=== PATIENT | male | born 1955 | race Caucasian/White ===

== ENCOUNTER 2020-05-14 09:38 | Outpatient (CLI) | payer OTHER, SELFPAY ==
--- NOTE | ~2020-05-14 | MR_ITS ---
EXAMINATION: MR lower leg LT wo con DATE: 05/14/2020 10:53 INDICATION: Left calf pain post injury with audible pop occurring 2-3 weeks prior. TECHNIQUE: Magnetic resonance imaging (MRI) of the left lower leg was performed without intravenous c ontrast. Sequences included axial, sagittal and coronal T1-weighted FSE and fluid sensitive FSE STIR . COMPARISON: None. FINDINGS: There is an oblique tear extending along approximately 8 cm length of the lateral side of the myotend inous junction of the medial head of the gastrocnemius muscle. The tear involves approximately 25% of the cross-sectional length of the medial head myotendinous junction. There is a 6 x 2.1 x 1.6 cm hem atoma extending along the tear defect. The tear centered approximately 11 cm distal to the left knee joint line. There is also some epimysial edema along the peripheral margin of the proximal aspect of the medial head of the gastrocnemius muscle. The more distal Achilles tendon is normal. Remaining mus culature of the left calf is normal. Normal bone marrow signal throughout with no reactive edema, fra cture or pathologic marrow replacing process. Physiologic amount of fluid in the left knee and ankle joints. IMPRESSION: 1. Moderate grade strain/partial tear at the myotendinous junction of the medial head of the gastrocn emius muscle. Reviewed, dictated and finalized at location A. CAPTAIN IMPRESSION: 1. Moderate grade strain/partial tear at the myotendinous junction of the media l head of the gastrocnemius muscle.
== END 2020-05-14 09:39 | disposition home or self-care (01) ==
PROVIDERS: PCP Family Medicine; Visit Provider Orthopaedic Surgery
DX: M79.662 Pain in left lower leg (principal); M79.89 Other specified soft tissue disorders
CPT/HCPCS: 73718

== ENCOUNTER 2021-02-15 09:35 | Outpatient (CLI) | payer OTHER, SELFPAY ==
--- NOTE | 2021-02-15 11:00 | NEURO_ITS ---
Impression: # Complains of left 4th finger numbness and numbness of feet. Insulin dependent diabetic. # Left ulnar neuropathy across the elbow. # Normal nerve conduction study of lower extremities. # Normal needle/EMG exam. Nerve Conduction Studies Anti Sensory Summary Table Stim Site NR Peak (ms) P-T Amp (?V) Site1 Site2 Delta-P (ms) Dist (cm) Alejandro (m/s) Left Median Anti Sensory (2-3nd Digit) Wrist 2.8 79.6 Wrist 2-3nd Digit 2.8 14.0 50 Wrist 2.7 73.4 Wrist 2-3nd Digit 2.8 14.0 50 Left Radial Anti Sensory (Base 1st Digit) Wrist 2.1 9.3 Wrist Base 1st Digit 2.1 0.0 Left Sup Fibular Anti Sensory (Ant Lat Mall) 14 cm 3.6 10.5 14 cm Ant Lat Mall 3.6 16.0 44 Right Sup Fibular Anti Sensory (Ant Lat Mall) 14 cm 4.1 4.5 14 cm Ant Lat Mall 4.1 16.0 39 Left Sural Anti Sensory (Lat Mall) Calf 4.2 7.3 Calf Lat Mall 4.2 16.0 38 Right Sural Anti Sensory (Lat Mall) Calf 4.3 5.5 Calf Lat Mall 4.3 16.0 37 Left Ulnar Anti Sensory (5th Digit) Wrist 2.6 22.7 Wrist 5th Digit 2.6 14.0 54 Motor Summary Table Stim Site NR Onset (ms) O-P Amp (mV) Site1 Site2 Delta-0 (ms) Dist (cm) Alejandro (m/s) Left Median Motor (Abd Poll Brev) Wrist 3.1 3.0 Elbow Wrist 4.6 28.0 61 Elbow 7.7 2.2 Left Peroneal Motor (Vastus Med) Ankle 5.4 2.3 Popit Ankle 9.5 38.0 40 Popit 14.9 2.6 Right Peroneal Motor (Vastus Med) Ankle 5.9 0.8 Popit Ankle 7.8 37.0 47 Popit 13.7 1.0 Left Tibial Motor (Abd Escobar Brev) Ankle 5.7 1.4 Knee Ankle 9.5 40.0 42 Knee 15.2 0.7 Right Tibial Motor (Abd Escobar Brev) Ankle 5.7 1.9 Knee Ankle 9.5 38.0 40 Knee 15.2 2.1 Left Ulnar Motor (Abd Dig Minimi) Wrist 2.3 8.4 A Elbow Wrist 5.2 27.0 52 A Elbow 7.5 6.2 B Elbow Wrist 4.0 24.0 60 B Elbow 6.3 6.3 F Wave Studies NR F-Lat (ms) L-R F-Lat (ms) Left Median (Mrkrs) (Abd Poll Brev) 25.58 Left Peroneal (Mrkrs) (EDB) 48.77 0.00 Right Peroneal (Mrkrs) (EDB) 48.77 0.00 Left Tibial (Mrkrs) (Abd Hallucis) 50.53 2.25 Right Tibial (Mrkrs) (Abd Hallucis) 48.28 2.25 Left Ulnar (Mrkrs) (Abd Dig Min) 25.40 EMG Side Muscle Nerve Root Ins Act Fibs Amp Dur Recrt Comment Right AntTibialis Dp Br Fibular L4-5 Nml Nml Nml Nml Nml Right Gastroc Tibial S1-2 Nml Nml Nml Nml Nml Right Fibularis Long Sup Br Fibular L5-S1 Nml Nml Nml Nml Nml Right Flex Dig Long Tibial L5-S2 Nml Nml Nml Nml Nml Right Ext Dig Brev Dp Br Fibular L5, S1 Nml Nml Nml Nml Nml Left AntTibialis Dp Br Fibular L4-5 Nml Nml Nml Nml Nml Left Gastroc Tibial S1-2 Nml Nml Nml Nml Nml Left Fibularis Long Sup Br Fibular L5-S1 Nml Nml Nml Nml Nml Left Flex Dig Long Tibial L5-S2 Nml Nml Nml Nml Nml Left Ext Dig Brev Dp Br Fibular L5, S1 Nml Nml Nml Nml Nml Left 1stDorInt Ulnar C8-T1 Nml Nml Nml Nml Nml Left Ext Indicis Radial (Post Int) C7-8 Nml Nml Nml Nml Nml Left Ext Digitorum Radial (Post Int) C7-8 Nml Nml Nml Nml Nml Left BrachioRad Radial C5-6 Nml Nml Nml Nml Nml Left PronatorTeres Median C6-7 Nml Nml Nml Nml Nml Left Abd Poll Brev Median C8-T1 Nml Nml Nml Nml Nml MTDD
== END 2021-02-15 09:36 | disposition home or self-care (01) ==
PROVIDERS: PCP Family Medicine; Visit Provider Emergency Medicine
DX: G56.22 Lesion of ulnar nerve, left upper limb (principal)
CPT/HCPCS: 95886; 95913

== ENCOUNTER 2023-02-21 08:08 | Outpatient (CLI) | payer OTHER, SELFPAY ==
--- NOTE | ~2023-02-21 | US_ITS ---
Limited Abdominal Sonogram: Real-time sonographic imaging of the right upper quadrant was performed. Clinical History: Abnormal liver enzymes Findings: The liver appears echogenic, with no evidence of mass lesion or bile duct dilatation. Main portal vein demonstrates normal direction of flow. The gallbladder is absent, compatible prior harlan cystectomy. The common bile duct measures 4 mm. The visualized pancreas, aorta, and IVC are unremark able. Impression: Diffuse fatty infiltration of liver. Reviewed, dictated and finalized at location M. Impression: Diffuse fatty infiltration of liver.
[2023-02-21 11:10] LABS: Appearance Urine Clear (Clear); Bilirubin Urine Negative (Negative); Blood Urine Negative (Negative); Color Urine Yellow (Yellow); Glucose Urine UA 3+ mg/dL (Negative); Ketones Urine Negative (Negative); Leukocyte Esterase Ur Negative LEU/UL (NEGATIVE); Nitrate Urine Negative (Negative); Protein Urine Negative (Negative); Urobilinogen Urine 0.2 mg/dL (<2.0)
[2023-02-21 11:30] LABS: Add Urine Microscopic? NO
[2023-02-21 11:34] LABS: Hemoglobin A1C 7.2 % (<5.7)
[2023-02-21 11:43] LABS: Hepatitis B Surface Antigen Negative (Negative)
[2023-02-21 11:49] LABS: HAV RESULT Negative (Negative); Hepatitis B Core IgM Result Negative (Negative)
[2023-02-21 12:01] LABS: Hepatitis C Virus Antibody Negative (Negative)
== END 2023-02-21 08:09 | disposition home or self-care (01) ==
PROVIDERS: PCP Emergency Medicine; Visit Provider Emergency Medicine
DX: E11.9 Type 2 diabetes mellitus without complications (principal); R74.01 Elevation of levels of liver transaminase levels; K76.0 Fatty (change of) liver, not elsewhere classified
CPT/HCPCS: 36415; 76705; 80074; 81001; 81003; 83036

== ENCOUNTER 2023-03-21 05:18 | Day surgery (SDC) | payer OTHER, SELFPAY ==
[2023-03-11 08:21] VITALS: BMI 31.4
--- NOTE | 2023-03-20 13:37 | WPDANESEPPF ---
Anes - Initial Pre Proc Eval Procedure: Operation Date: 03/21/23 09:30 Proposed Procedures p Colonoscopy - Julian Aparicio MD Date/Time: 03/20/23 13:37 Surgeon: Julian Aparicio MD Pre Op Diagnosis: personal hx colon polyps Patient Data Age: 67 Gender: M Height: 1.7 m Weight: 91 kg Allergies Allergy/AdvReac Type Severity Reaction Status Date / Time onion Allergy Severe Anaphylaxis Verified 03/21/23 08:15 Home Medications Medication Instructions Recorded Confirmed Type Glucosamine Chondroitin 1 tab-cap PO DAILY 03/11/23 03/11/23 History Vitamin D3 1 cap PO DAILY 03/11/23 03/11/23 History allopurinol 300 mg tablet 30 mg PO EVERY OTHER DAY 03/11/23 03/11/23 History atorvastatin 20 mg tablet 20 mg PO HS 03/11/23 03/11/23 History empagliflozin 25 mg tablet 25 mg PO DAILY 03/11/23 03/11/23 History (Jardiance) glimepiride 4 mg tablet 4 mg PO BID 03/11/23 03/11/23 History insulin degludec 100 unit/mL (3 30 unit subcut DAILY 03/11/23 03/11/23 History mL) subcutaneous pen (Tresiba FlexTouch U-100 insulin) krill oil 1 cap PO DAILY 03/11/23 03/11/23 History losartan 100 mg tablet 100 mg PO DAILY 03/11/23 03/11/23 History multivitamin 1 tablet PO DAILY 03/11/23 03/11/23 History omega-3 fatty acids 1 cap PO DAILY 03/11/23 03/11/23 History semaglutide 1 mg/dose (4 mg/3 mL) 1 mg subcut WEEKLY 03/11/23 03/11/23 History subcutaneous pen injector (Ozempic) vitamin B complex 1 cap PO DAILY 03/11/23 03/11/23 History Patient hx anesthesia problems: none Family hx anesthesia problems: none Results Review: All pre-operative results and documents have been reviewed as part of the pre-operative evaluation. [facility] Past Medical History Medical History (Updated 03/20/23 @ 13:37 by Topher Smith DO) Diabetes type 2, controlled Essential (primary) hypertension Mixed hyperlipidemia Obstructive sleep apnea, adult Type 2 diabetes mellitus without complications Surgical History Surgical History (Updated 03/20/23 @ 13:37 by Topher Smith DO) History of cholecystectomy Family History Family History (Updated 12/05/17 @ 09:11 by DOCTOR UNKNOWN) Father Family history of chronic obstructive pulmonary disease Family history of congestive heart failure Hypertension Family history of cardiovascular disease Mother Family history of congestive heart failure Diabetes mellitus Family history of cardiovascular disease Grandparent Diabetes mellitus Hypertension Family history of cardiovascular disease Cerebrovascular accident Other Family history of elevated blood lipids Social History Social History Smoking status: Never smoker Alcohol intake: current Substance use: never Substance use type: does not use Living arrangements: with family Spiritual care concerns: No Anes - Eval Final PreProcedure Day of Procedure 03/20/23 13:37 Patient weight: obese Heart: regular rate and rhythm Lungs: clear to auscultation Airway: Mallampati scale class II Neurological: alert and oriented Last oral intake: >/= 8 hours ASA classification: III Emergent: no Anesthetic plan: proceed Anesthesia type and monitoring: general GIVS and standard monitoring Results Review: All pre-operative results and documents have been reviewed as part of the pre-operative evaluation. Informed Consent: The patient's anesthetic plan and its attendant risks and benefits were discussed with the patient/family/POA. Questions were solicited and answers provided to the satisfaction of the patient/family/POA.
[2023-03-21 08:17] VITALS: BP 132/81; PULSE 80; RESP 20; TEMP 36.2; O2SAT 96
[2023-03-21] MEDS: LACTATED RINGERS 1,000 ML 150 ML IV CONT (08:31)
[2023-03-21 08:33] LABS: Glucose Point of Care 109 mg/dl (65-105)
--- NOTE | 2023-03-21 08:57 | PM.HPGS ---
History of Present Illness History of Present Illness Consent: Risks, benefits, and alternatives have been discussed and questions answered. Patient agrees to proceed with procedure. Chief complaint: personal hx colon polyps Narrative: Raul Almodovar is a 67 year old male Presents for screening colonoscopy. Patient's current weight appetite and bowel movements are normal. Patient denies abdominal pain. He has had no bleeding. Family history noncontributory. Previous colonoscopy 2018 revealed a benign sessile serrated adenoma. Patient does have a prior history of colon polyps as well. Family history noncontributory. Review of Systems Review of Systems: Review of systems noncontributory. [facility] Past Medical History Medical History (Updated 03/21/23 @ 08:58 by Julian Aparicio MD) Diabetes type 2, controlled Essential (primary) hypertension Mixed hyperlipidemia Obstructive sleep apnea, adult Type 2 diabetes mellitus without complications Surgical History Surgical History (Updated 03/20/23 @ 13:37 by Topher Smith DO) History of cholecystectomy Family History Family History (Updated 12/05/17 @ 09:11 by DOCTOR UNKNOWN) Father Family history of chronic obstructive pulmonary disease Family history of congestive heart failure Hypertension Family history of cardiovascular disease Mother Family history of congestive heart failure Diabetes mellitus Family history of cardiovascular disease Grandparent Diabetes mellitus Hypertension Family history of cardiovascular disease Cerebrovascular accident Other Family history of elevated blood lipids Social History Social History Smoking status: Never smoker Alcohol intake: current Substance use: never Substance use type: does not use Living arrangements: with family Spiritual care concerns: No Meds Home Medications and Allergies Home Medications Medication Instructions Recorded Confirmed Type Glucosamine Chondroitin 1 tab-cap PO DAILY 03/11/23 03/11/23 History Vitamin D3 1 cap PO DAILY 03/11/23 03/11/23 History allopurinol 300 mg tablet 30 mg PO EVERY OTHER DAY 03/11/23 03/11/23 History atorvastatin 20 mg tablet 20 mg PO HS 03/11/23 03/11/23 History empagliflozin 25 mg tablet 25 mg PO DAILY 03/11/23 03/11/23 History (Jardiance) glimepiride 4 mg tablet 4 mg PO BID 03/11/23 03/11/23 History insulin degludec 100 unit/mL (3 30 unit subcut DAILY 03/11/23 03/11/23 History mL) subcutaneous pen (Tresiba FlexTouch U-100 insulin) krill oil 1 cap PO DAILY 03/11/23 03/11/23 History losartan 100 mg tablet 100 mg PO DAILY 03/11/23 03/11/23 History multivitamin 1 tablet PO DAILY 03/11/23 03/11/23 History omega-3 fatty acids 1 cap PO DAILY 03/11/23 03/11/23 History semaglutide 1 mg/dose (4 mg/3 mL) 1 mg subcut WEEKLY 03/11/23 03/11/23 History subcutaneous pen injector (Ozempic) vitamin B complex 1 cap PO DAILY 03/11/23 03/11/23 History Allergies Allergy/AdvReac Type Severity Reaction Status Date / Time onion Allergy Severe Anaphylaxis Verified 03/21/23 08:15 Vital Signs Vital Signs - 24 hr 03/21/23 08:17 Temperature 97.1 F L Pulse Rate 80 Respiratory Rate 20 Blood Pressure 132/81 Pulse Oximetry 96 Oxygen Delivery Room Air Exam Narrative: Physical exam reveals patient to be alert. Vital signs stable. HEENT exam is unremarkable. Patient is anicteric. Lungs are clear to auscultation and percussion. Heart is without murmur or extra sounds. Abdomen bowel sounds are present soft nontender with no organomegaly. Digital external rectal exam normal. Assessment and Plan Assessment and plan (1) History of colon polyps: Code(s): Z86.010 - Personal history of colonic polyps Status: Acute Assessment and Plan: Patient has a history of adenomatous colon polyps. Plan for surveillance colonoscopy now and consider this at 5 year intervals.
[2023-03-21 10:02] VITALS: BP 121/71; PULSE 74; RESP 17; O2SAT 92
[2023-03-21 10:12] VITALS: BP 116/73; PULSE 71; RESP 17; O2SAT 98
[2023-03-21 10:22] VITALS: BP 124/78; PULSE 71; RESP 18; O2SAT 93
== END 2023-03-21 10:30 | disposition home or self-care (01) ==
PROVIDERS: PCP Family Medicine; Visit Provider Internal Medicine Gastroenterology
PROC: 0DJD8ZZ Inspection of Lower Intestinal Tract, Via Natural or Artificial Opening Endoscopic (ICD-10-PCS; CPT 45378; principal; 2023-03-21 09:30)
DX: Z12.11 Encounter for screening for malignant neoplasm of colon (principal); Z86.010 Personal history of colon polyps; E11.9 Type 2 diabetes mellitus without complications; I10 Essential (primary) hypertension; E78.2 Mixed hyperlipidemia; G47.33 Obstructive sleep apnea (adult) (pediatric); Z79.84 Long term (current) use of oral hypoglycemic drugs; Z79.4 Long term (current) use of insulin; E66.9 Obesity, unspecified; Z68.33 Body mass index [BMI] 33.0-33.9, adult
CPT/HCPCS: 45378; 82948; J2704; J7120